=== PATIENT | male | born 1960 | race Caucasian/White ===

== ENCOUNTER → 2016-07-27 | Outpatient (CLI) | payer OTHER ==
[~2016-07-27] MED LIST: ATORVASTATIN CA40 MG PO; AUGMENTIN 875875 MG PO; HYDROCODON-ACE1 EAC7 PO; LOPRESSOR25 PO; NOHOMEMEDICATIONS; TOPROL XL25 MG PO
== END ==
LOC: ULTRA 07-26 17:29
DX: R09.89 Other specified symptoms and signs involving the circulatory and respiratory systems (principal)

== ENCOUNTER 2019-03-18 00:51 | Emergency (ER) | payer OTHER ==
[~2019-03-18] VITALS: Ht 177.8 cm; Wt 136.1 kg
[2019-03-18 01:12] LABS: ABSOLUTE NEUTROPHILS 4.2 thou/uL (1.4-8.2); BASOPHILS 0.5 % (0.0-2.0); EOSINOPHILS 4.2 % (0.0-3.0); HEMATOCRIT 50.4 % (42.0-52.0); HEMOGLOBIN 17.5 gm/dL (14.0-18.0); LYMPHOCYTES 35.3 % (24.0-44.0); MCH 31.6 pg (26.0-34.0); MCHC 34.8 g/dL (28.0-37.0); MCV 90.8 fL (80.0-100.0); MONOCYTES 11.6 % (1.0-8.0); PLATELET COUNT 199 thou/uL (150-400); POLYS 48.4 % (36.0-66.0); RBC 5.55 mil/uL (4.50-6.00); RDW 13.2 % (10.5-14.5); WBC 8.6 thou/uL (4.0-11.0)
[2019-03-18 01:15] LABS: ANION GAP 10 mmol/L (7-16); BUN 13 mg/dL (7-18); CALCIUM 9.2 mg/dL (8.5-10.1); CHLORIDE 101 mmol/L (98-107); CO2 30 mmol/L (21-32); CREATININE 1.7 mg/dL (0.7-1.3); GLUCOSE 110 mg/dL (74-106); POTASSIUM 3.5 mmol/L (3.5-5.1); SODIUM 141 mmol/L (136-145)
[2019-03-18 01:24] LABS: TROPONIN-I <0.06 ng/mL (<0.06)
[2019-03-18] MEDS ORDERED: TOPROL XL25 MG PO (03:33)
[2019-03-18 03:40] VITALS: BP 128/85
--- NOTE | 2019-03-18 09:04 | EKG ---
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 : 1960 Requested By: Fernando Rosen Order Number: [id number] MD: Greg Bradley Measurements Intervals [place] Rate: 194 P: 0 [place]: QRS: 57 QRSD: 85 T: 3 QT: 277 QTc: 498 Interpretive Statements Supraventricular tachycardia RSR' in V1 or V2, probably normal variant Repolarization abnormality, prob rate related Baseline wander in lead(s) V1 Compared to ECG 06/14/2016 13:07:17 Supraventricular tachycardia is now present Electronically Signed On 03-18-2019 9:04:29 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
--- NOTE | 2019-03-18 09:05 | EKG ---
[place] [address] 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 : 1960 Requested By: Fernando Rosen Order Number: [id number] MD: Greg Bradley Measurements Intervals [place] Rate: 83 P: 44 SD: 142 QRS: 27 QRSD: 102 T: 16 QT: 375 QTc: 441 Interpretive Statements Sinus rhythm RSR' in V1 or V2, right VCD Borderline ST depression, lateral leads Compared to ECG 06/14/2016 13:07:17 Sinus rhythm has replaced supraventricular tachycardia Electronically Signed On 03-18-2019 9:04:51 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
== END 2019-03-18 03:45 | disposition home or self-care (01) ==
LOC: ER 00:51
PROVIDERS: Emergency Medicine
DX: I47.1 Supraventricular tachycardia (principal); I48.91 Unspecified atrial fibrillation; G89.29 Other chronic pain; M54.9 Dorsalgia, unspecified

== ENCOUNTER → 2019-03-20 | Outpatient (CLI) | payer OTHER | LOC: CAT 15:14 | DX: Z13.6 Encounter for screening for cardiovascular disorders (principal); I25.10 Atherosclerotic heart disease of native coronary artery without angina pectoris; E78.00 Pure hypercholesterolemia, unspecified ==

== ENCOUNTER → 2019-04-30 | Outpatient (CLI) | payer OTHER ==
[~2019-04-30] MED LIST changes: +ASA81BEC PO; +CRESTOR40 MG PO; +METOPROLOL SUCC50 MG PO; +ZETIA10 MG PO
== END ==
LOC: SJCVC 13:47
DX: I47.1 Supraventricular tachycardia (principal); E78.01 Familial hypercholesterolemia; Z82.49 Family history of ischemic heart disease and other diseases of the circulatory system

== ENCOUNTER → 2019-05-23 | Outpatient (CLI) | payer OTHER ==
[~2019-05-23] VITALS: Ht 177.8 cm; Wt 133.8 kg
--- NOTE | ~2019-05-23 | P ---
[facility] [place] [address] PROCEDURE REPORT Name: SOFIA VILLANUEVA Room #: [facility]#: [id number] Admission: 05/23/19 Attend Phys: Frank Avila MD Discharge: Date of : 62 Report #: [id number] THIS REPORT FOR: cc: TOÑA - Family physician unknown FAM - Family physician unknown Frank Avila MD ~ CC: TOÑA Avila DATE OF SERVICE: 05/23/2019 SUPRAVENTRICULAR TACHYCARDIA ABLATION PREOPERATIVE DIAGNOSIS: Supraventricular tachycardia. POSTOPERATIVE DIAGNOSIS: Typical atrioventricular josé miguel reentrant tachycardia. PROCEDURES PERFORMED: 1. SVT ablation, CPT code 23950. 2. EP with left atrial pacing and recording, CPT code 78720. 3. Program stimulation pacing after IV drug infusion, CPT code 73632. 4. 3D mapping, CPT code 39936. HISTORY OF PRESENT ILLNESS: The patient is a 58-year-old male with a history of recurrent supraventricular tachycardia that is adenosine sensitive. He is here for ablation. ANESTHESIA: The patient underwent MAC anesthesia with no anesthesia related complications. DESCRIPTION OF PROCEDURE: The patient underwent informed consent. We discussed the details of the procedure including the risks, which include but not limited to bleeding, infection, vascular damage, stroke, PR as well as damage to the [place] conduction system requiring permanent pacemaker. He understood these risks and is willing to proceed. The patient was brought to EP laboratory in fasting and sedated state and prepped and draped in a sterile fashion. I injected lidocaine in bilateral groins. Obtained access to the bilateral veins placing sheaths using the modified Seldinger technique. Next, in the right femoral vein, I placed 8, 6 and 7-Slovenian short sheath and in left femoral vein, I placed a 6-Slovenian short sheath. Next, under fluoroscopy, I placed 3 quadripolar catheters at the HRA, His and RV positions and a decapolar catheter into the coronary sinus, which was used for left atrial pacing and recording, A basic EP study was then performed. At baseline, the patient was in sinus rhythm with sinus cycle length of [address] [facility] [address] [place] [address] PROCEDURE REPORT Name: SOFIA VILLANUEVA Room #: [facility].#: [id number] Admission: 05/23/19 Attend Phys: Frank Avila MD Discharge: Date of : 62 Report #: [id number] milliseconds, CA interval 160 milliseconds, QRS duration 95 milliseconds, QT interval 380 milliseconds, AH interval 80 milliseconds, HV interval 40 milliseconds. Atrial burst pacing was performed and AV block was noted at 280 milliseconds. AV josé miguel ERP was noted at 290 milliseconds at [address] cycle length. Ventricular pacing was performed and VA conduction was both midline and decremental. After burst pacing, the patient had an isolated premature atrial contraction which initiated SVT with a septal VA time of 35 milliseconds and his tachycardia cycle length of 330 milliseconds. I attempted to entrain this, but terminated the tachycardia. After he converted to sinus about 3 seconds later, he went into atrial fibrillation, which terminated after about 10 seconds. I then reinduced AV josé miguel reentrant tachycardia again and this terminated after about 10 seconds on its own and he went back into atrial fibrillation for 1-2 minutes. This organized into flutter and then converted to sinus again. Isoproterenol infusion was started at 1 mcg per minute and again atrial burst pacing was performed and then I was able to induce SVT. I was able to perform ventricular entrainment, which demonstrated a VAHV response consistent with typical AV josé miguel reentrant tachycardia. Ventricular burst pacing was again performed and VA block was noted at 320 milliseconds. Ventricular ERP was noted at 190 milliseconds at [address] cycle length. Again, VA conduction was both midline and decremental. As such, diagnosis of typical AV josé miguel reentrant tachycardia was made. 3D MAPPING AND ABLATION: Next, I removed my HRA catheter and exchanged for an SR0 sheath and a 4-mm Biosense Ramachandran ablation catheter. I created a detailed 3D geometry of the right atrium with specific emphasis of the His region and a slow pathway region. I found a nice slow pathway potential approximately 18 mm below the His bundle. Ablation here resulted in slow junctionals, then he had some bursts of atrial tachycardia with 1:1 conduction. I came off. During the first 2 or 3 [place], he would have short bursts of atrial tachycardia with normal conduction. I would come off when I would see this. A total of 9 ablation lesions was performed. The last 5 lesions had nice slow junctionals almost continuously. As such, at this point, we decided to perform post-ablation testing. Of note, there was never any compromise to the AV node function. POST-ABLATION: Post-ablation, isoproterenol was started back at 1 mcg per minute. AV block was noted at 320 milliseconds. Atrial ERP was noted at 240 milliseconds. Ventricular pacing maneuvers were also performed. We tested for about 20-30 minutes and could no longer induce SVT. Isoproterenol infusion was turned off and we continued testing and again no SVT could be induced. As such, the procedure was concluded. Post-ablation, the patient remained in sinus rhythm with a sinus cycle length of 720 milliseconds, CA interval 145 milliseconds, QRS duration 85 milliseconds, QT interval 360 milliseconds, AH interval 75 milliseconds, and HV interval 40 milliseconds. As such, catheters and sheaths were pulled. Hemostasis was obtained. The patient awoke [facility] [address] [place] [address] PROCEDURE REPORT Name: SOFIA VILLANUEVA [place] Room #: REG JONAS [facility]aira#: [id number] Admission: 05/23/19 Attend Phys: Frank Avila MD Discharge: Date of : 62 Report #: [id number] neurologically and hemodynamically intact. CONCLUSIONS: 1. Successful ablation of typical AV josé miguel reentrant tachycardia. 2. Normal SA josé miguel function. 3. Normal AV josé miguel function. 4. Normal His-Purkin[place] function. 5. No other inducible supraventricular arrhythmias. 6. Few episodes of atrial fibrillation, which may be nonspecific findings related to the EP study; however, the patient continues to have palpitations post-ablation and then we should look for any possible atrial fibrillation in the future. By: 1317 1415 Frank Avila MD /nt
[2019-05-23 07:10] VITALS: BP 123/69
[2019-05-23 07:39] LABS: ABSOLUTE NEUTROPHILS 3.3 thou/uL (1.4-8.2); BASOPHILS 1.4 % (0.0-2.0); EOSINOPHILS 6.6 % (0.0-3.0); MCH 30.8 pg (26.0-34.0); MCHC 34.2 g/dL (28.0-37.0); MONOCYTES 10.6 % (1.0-8.0); PLATELET COUNT 139 thou/uL (150-400); POLYS 57.4 % (36.0-66.0); RBC 4.89 mil/uL (4.50-6.00); RDW 13.6 % (10.5-14.5); WBC 5.7 thou/uL (4.0-11.0)
[2019-05-23 07:43] LABS: CALCIUM 8.7 mg/dL (8.5-10.1); CREATININE 1.2 mg/dL (0.7-1.3); POTASSIUM 3.9 mmol/L (3.5-5.1)
[2019-05-23 07:49] LABS: ALBUMIN 3.5 g/dL (3.4-5.0); TOTAL BILIRUBIN 0.7 mg/dL (<0.1-1.0); TOTAL PROTEIN 6.8 g/dL (6.4-8.2)
[2019-05-23 07:55] LABS: INR 1.1; PROTIME 11.1 Seconds (9.3-11.4)
== END | disposition home or self-care (01) ==
LOC: CATH 06:37
PROVIDERS: Internal Medicine Cardiovascular Disease
DX: I47.1 Supraventricular tachycardia (principal); I48.91 Unspecified atrial fibrillation; Z82.49 Family history of ischemic heart disease and other diseases of the circulatory system; E78.5 Hyperlipidemia, unspecified; E66.09 Other obesity due to excess calories; Z90.49 Acquired absence of other specified parts of digestive tract; Z98.890 Other specified postprocedural states; Z79.899 Other long term (current) drug therapy; Z79.82 Long term (current) use of aspirin; Z79.01 Long term (current) use of anticoagulants
CPT/HCPCS: 62110; 62900; 70005